=== PATIENT | male | born 1985 | race Two or more races ===

== ENCOUNTER → 2022-10-04 | Outpatient (CLI) | payer BC, OTHER ==
--- NOTE | 2022-10-05 08:22 | XR ---
EXAMINATION TYPE: XR Hip Complete LT DATE OF EXAM: 10/04/2022 COMPARISON: NONE HISTORY: Pain TECHNIQUE: 2 views submitted FINDINGS: There is no evidence of erosive change or acute fracture. Complete narrowing of the superior margin j oint space. Chronic appearing deformity of the femoral head spurring. IMPRESSION: 1. Severe osteoarthritis with complete loss joint space chronic deformity femoral head.
== END | disposition home or self-care (01) ==
LOC: RADXRMAIN 17:01
PROVIDERS: ATTEND Family Medicine
DX: M16.12 Unilateral primary osteoarthritis, left hip (principal)
CPT/HCPCS: 73502

== ENCOUNTER → 2024-04-19 | Outpatient (CLI) | payer BC ==
[2024-04-19 15:28] VITALS: BP 129/79; PULSE 90; RESP 16; TEMP 98
--- NOTE | 2024-04-19 18:47 | P.SLEEP ---
History of Present Illness DATE: 04/19/2024 CONSULTATION/NEW PATIENT EVALUATION HISTORY OF PRESENT ILLNESS/SLEEP-WAKE EVALUATION: 39-year-old gentleman had b een evaluated in the sleep center for possible obstructive sleep apnea hypopnea syndrome. SLEEP SCHEDULE: Usually sleep schedule from 9:30 PM to 5:45 AM on weekdays and from 9:30 PM to 7:30 AM on weekend. FALLING ASLEEP: No problems with falling asleep. DURING SLEEP: Patient has loud snoring, witnessed episodes of stop breathing during the sleep by his , multiple awakenings from sleep with nocturia. Occasional hypnogogical hallucinations, no sleep paralysis sleep paralysis, or cataplexy. DURING THE DAY/WAKE STATE: In the morning patient wake up tired, falling asleep during the day, positive history of irritability. Green[place] sleepiness scale is in extremely high range of 17. Usually patient does not take naps. PAST MEDICAL HISTORY: Hypertension, acid reflux, hyperlipidemia. PAST SURGICAL HISTORY: Status post left hip surgery, status post left elbow surgery. MEDICATIONS: Please see below. SOCIAL HISTORY: Please see below. FAMILY HISTORY: Please see below. REVIEW OF SYSTEMS: Loud snoring, multiple awakenings from sleep. No fevers. No double vision. No recent chest pain. No shortness of breath. No abdominal pain. No bleeding episodes. No blood in urine. No seizure episodes. PHYSICAL EXAMINATION: GENERAL: A pleasant patient without any distress. VITAL SIGNS: Please see below, weight 312 pounds, BMI 46.2. HEENT: PERRLA, EOMI. Evaluation of oropharynx showed tongue protrudes midline, low position of soft palate Mallampati 4. NECK: Supple. No JVD. Thyroid is not palpable. 19 inches in circumference. LUNGS: Clear to percussion and to auscultation. Good air exchange. No wheezing or rhonchi. HEART: S1, S2 regular. No murmurs, gallops or rubs. ABDOMEN: Soft and nontender. Bowel sounds are present. No organomegaly appreciated. EXTREMITIES: No clubbing or cyanosis. LOAN SERVICE OFFICER: Awake, alert, and oriented x3. Cranial nerves 2 to 7 intact. There is no fasciculation or atrophy noted. No focal deficits observed. ASSESSMENT: 1. Loud snoring, witnessed episodes of stop breathing during the sleep by , extremely low position of soft palate Mallampati 4, wide neck 19 inches in circumference. Obstructive sleep apnea hypopnea syndrome. 2. Obesity, BMI 46.2. 3. Hypertension. 4. Hyperlipidemia. 5 acid reflux. 6 . Status post left hip surgery. 7. Status post left elbow surgery. PLAN: 1. Home sleep apnea testfor evaluation of patient's breathing during sleep. 2. Following plan after reading sleep study. 3. Preferable position during sleep on the side. 4. No driving if patient feels any sleepiness. Patient is aware of civil and criminal liability for unsafe driving. 5. Sleep hygiene with regular sleep time for at least 7.5-8 hours. 6. Watching and losing weight. Thank you very much for referring this patient for consultation. Sincerely, Basim Bonilla MD, PhD, FAASM. Diplomat of [place], Sleep Medicine Board by [place] [employer] Board [facility] [place] cc: Wong Sherman DO Past Medical History Past Medical History: GERD/Reflux, Hyperlipidemia, Hypertension History of Any Multi-Drug Resistant Organisms: None Reported Past Surgical History: Joint Replacement, Orthopedic Surgery Additional Past Surgical History / Comment(s): Hip Replaced 2023, Lt elbow-2004 Past Anesthesia/Blood Transfusion Reactions: No Reported Reaction Past Psychological History: No Psychological Hx Reported Smoking Status: Current every day smoker Past Alcohol Use History: Occasional Past Drug Use History: None Reported - Past Family History Father Family Medical History: Cancer, GERD/Reflux, Hyperlipidemia, Hypertension Additional Family Medical History / Comment(s): Esophageal CA , snoring, arthritis unknown type Mother Family Medical History: Osteoarthritis (OA) Medications and Allergies Home Medications Medication Instructions Recorded Confirmed Type Omeprazole 40 mg PO DAILY 04/19/24 04/19/24 History Rosuvastatin [Crestor] 10 mg PO DAILY 04/19/24 04/19/24 History Varenicline [Chantix] 1 mg PO DAILY 04/19/24 04/19/24 History amLODIPine [Norvasc] 5 mg PO DAILY 04/19/24 04/19/24 History Physical Exam Vitals: Vital Signs Temp Pulse Resp BP Pulse Ox 04/19/24 15:26 98 F 90 16 129/79 96 Intake and Output 04/19/24 04/19/24 04/19/24 06:59 14:59 22:59 Other: Weight 141.521 kg Sleep Note - Sleep Data ESS Total: 17 - Sleep Note Sleep Note: Temperature: 98 F Pulse Rate: 90 Respiratory Rate: 16 Blood Pressure: 129/79 SpO2: 96 Height: 5 ft 9.5 in Weight: 141.521 kg BMI: Neck Circumference: 19
== END ==
LOC: 3 N SLEEP 14:45
PROVIDERS: ATTEND Internal Medicine
DX: R06.83 Snoring (principal); G47.33 Obstructive sleep apnea (adult) (pediatric); E66.9 Obesity, unspecified; Z68.42 Body mass index [BMI] 45.0-49.9, adult; I10 Essential (primary) hypertension; K21.9 Gastro-esophageal reflux disease without esophagitis; E78.5 Hyperlipidemia, unspecified; Z98.890 Other specified postprocedural states
CPT/HCPCS: 99211

== ENCOUNTER → 2024-07-18 | Outpatient (CLI) | payer BC ==
[2024-07-18 14:37] VITALS: BP 129/79; PULSE 84; RESP 16; TEMP 98.1
--- NOTE | 2024-07-18 15:01 | P.PROGSL ---
Subjective DATE: 07/18/2024 FOLLOW UP VISIT. Patient with obstructive sleep apnea hypopnea syndrome return to sleep center for follow-up visit. Recently patient had sleep study which documented obstructive sleep apnea hypopnea syndrome. Patient was initiated on PAP therapy and today is first visit after treatment was started. I discussed results of sleep studies with patient in details Patient was able to use BPAP equipment every night for the whole night. He feels significant improvements after starting to use BPAP equipment. The patient does not have significant problems with the PAP pressure and humidification. Tracy sleepiness scale is 2. I checked information from PAP unit. BPAP unit pressure maximal inspiratory pressure 22, minimal expiratory pressure 10, pressure support 4, average pressure 19.3 or 15.4 cm H2O. Usage is 90% and 73% for more then 4 hours, average 5.5 hours per night. Leak is increased to 40.7 l/m. Apnea Hypopnea Index is 2.3, which is normal. MEDICATIONS: Please see below During physical exam: GENERAL: A pleasant patient without any distress. VITAL SIGNS: Below, weight 312 pounds. HEENT: PERRLA, EOMI.low position of soft palate, Mallapati 4 . NECK: Supple. No JVD. LUNGS: Clear to percussion and to auscultation. Good air exchange. No wheezing or rhonchi. HEART: S1, S2 regular. ABDOMEN: Soft and nontender. Obese EXTREMITIES: No clubbing or cyanosis. SENIOR RISK ANALYST: Awake, alert, and oriented x3. No focal deficit. Impressions: 1. Obstructive sleep apnea-hypopnea syndrome. Patient demonstrated great compliance with treatment, benefiting from treatment. 2. Obesity. 3. Hypertension. 4. Hyperlipidemia. 5. Acid reflux. 6. Status post left elbow surgery. 7. Status post left hip surgery. Plan: 1. Continue using PAP equipment every night for the whole night. 2. To change air filter at least 1-2 times per month. 3. PAP unit should stay lower then position of the head. 4. Advised patient to remove all remaining water from humidifier canister daily and make it dry after each usage. Refill canister with fresh distilled water before each usage. 5. Sleep hygiene with regular time in bed for at least 8 hours. 6. Precautions related to driving. No driving if feel any sleepiness. 7. I will maintain prescription for PAP supplies including mask, tube, filters. 8. Follow up visit in 8 months or earlier if patient has any problems. 9. Watching and losing weight. Thank you very much for allowing me to participate in the management of your patient. Basim Bonilla MD, PhD, FAASM. Diplomat of [place] [employer], Sleep Medicine Board by [place] [employer]simile [facility] [place] Objective - Vital Signs Vital Signs: Vital Signs Temp 98.1 F 07/18/24 14:36 Pulse 84 07/18/24 14:36 Resp 16 07/18/24 14:36 BP 129/79 07/18/24 14:36 Pulse Ox 98 07/18/24 14:36 FiO2 Home Medications: Home Medications Medication Instructions Recorded Confirmed Type Omeprazole 40 mg PO DAILY 04/19/24 04/19/24 History Rosuvastatin [Crestor] 10 mg PO DAILY 04/19/24 04/19/24 History Varenicline [Chantix] 1 mg PO DAILY 04/19/24 04/19/24 History amLODIPine [Norvasc] 5 mg PO DAILY 04/19/24 04/19/24 History
== END ==
LOC: 3 N SLEEP 14:23
PROVIDERS: ATTEND Internal Medicine
DX: G47.33 Obstructive sleep apnea (adult) (pediatric) (principal); E66.9 Obesity, unspecified; I10 Essential (primary) hypertension; E78.5 Hyperlipidemia, unspecified; K21.9 Gastro-esophageal reflux disease without esophagitis; Z96.622 Presence of left artificial elbow joint; Z99.89 Dependence on other enabling machines and devices; Z96.642 Presence of left artificial hip joint
CPT/HCPCS: 99212